=== PATIENT | female | born 1990 | race African-American/Black ===

== ENCOUNTER 2017-09-30 08:39 | Emergency (ER) | payer OTHER ==
[2017-09-30 09:08] LABS: Bilirubin Negative (Negative); Blood, Urine Negative (Negative); Glucose, Urine (Dipstick) Negative (Negative); Ketone, Urine Negative (Negative); Nitrite Negative (Negative); Protein, Urine (Dipstick) Negative (Neg-Trace); Urobilinogen 0.2 mg/dL (0.2-1.0)
== END 2017-09-30 09:58 | disposition home or self-care (01) ==
LOC: SCSER 08:39
DX: N76.0 Acute vaginitis (principal); F17.210 Nicotine dependence, cigarettes, uncomplicated
CPT/HCPCS: 81003; 81025; 99283